=== PATIENT | female | born 1975 ===

== ENCOUNTER 2017-07-25 00:24 | Emergency (ER) | payer SELFPAY ==
[2017-07-25 00:24] VITALS: BMI 26.4
[2017-07-25 00:48] VITALS: BP 135/79; PULSE 80; RESP 16; TEMP 98; O2SAT 100
--- NOTE | 2017-07-25 01:02 | ED PDOC ---
HPI: Skin/Bite Injury Time Seen by Provider: 07/25/17 00:44 Chief Complaint (Nursing): Abnormal Skin Integrity Chief Complaint (Provider): rash History Per: Patient History/Exam Limitations: no limitations Onset/Duration Of Symptoms: Days (2 weeks) Current Symptoms Are (Timing): Still Present Quality Of Symptoms: Itching Additional History Per: Patient Additional Complaint(s): 41 y/o female presents with pruritic rash x 2 weeks. PAtient states she was seen at [facility] and given prescriptions but was unable to fill the cream because it is too expensive. Patient denies fever, known allergen. Has been applying calamine lotion with little relief. Past Medical History Reviewed: Historical Data, Nursing Documentation, Vital Signs Vital Signs: Last Vital Signs Temp 98 F 07/25/17 00:43 Pulse 80 07/25/17 00:43 Resp 16 07/25/17 00:43 BP 135/79 07/25/17 00:43 Pulse Ox 100 07/25/17 01:04 - Medical History PMH: Anemia (" when I was a baby" as per pt.), Asthma, COPD (ASTHMA) Denies: Chronic Kidney Disease - Surgical History Surgical History: - Family History Family History: States: CAD - Immunization History Hx Tetanus Toxoid Vaccination: No Hx Influenza Vaccination: No Hx Pneumococcal Vaccination: No - Home Medications Home Medications: Ambulatory Orders Medication Instructions Recorded Acyclovir [Zovirax] 800 mg PO 5XD #35 tab 07/07/17 DiphenhydrAMINE [Benadryl] 50 mg PO Q6H #24 cap 07/07/17 Permethrin 5% [Permethrin 5% Cream] 1 applic TOP ONCE #1 tube 07/07/17 - Allergies Allergies/Adverse Reactions: Allergies Allergy/AdvReac Type Severity Reaction Status Date / Time seafood Allergy Severe RASH Uncoded 05/15/17 02:40 Review of Systems ROS Statement: Except As Marked, All Systems Reviewed And Found Negative Skin: Positive for: Rash Physical Exam - Reviewed Nursing Documentation Reviewed: Yes Vital Signs Reviewed: Yes - Physical Exam Appears: Positive for: Well, Non-toxic, No Acute Distress Head Exam: Positive for: ATRAUMATIC, NORMAL INSPECTION, NORMOCEPHALIC Skin: Positive for: Rash (diffuse papular rash alternating with welts, with svetlana-type pattern appearing bilateral volar forearms. ) ENT: Positive for: Normal ENT Inspection Cardiovascular/Chest: Positive for: Regular Rate, Rhythm Respiratory: Positive for: Normal Breath Sounds Extremity: Positive for: Normal ROM Neurologic/Psych: Positive for: Alert, Oriented - ECG O2 Sat by Pulse Oximetry: 100 - Progress ED Course And Treament: Solumedrol, benadryl, pepcid Patient given permethrin cream with instructions on use. Advised to continue Benadryl. 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 Disposition - Clinical Impression Clinical Impression: Rash of body, Scabies - Patient ED Disposition Is Patient to be Admitted: No Counseled Patient/Family Regarding: Diagnosis, Need For Followup - Disposition Disposition: Routine/Home Disposition Time: 05:01 Condition: IMPROVED Additional Instructions: Follow up with Dermatology Use medication as directed. Take Benadryl as directed, as needed. Return to ED for worsening/concerning symptoms. Instructions: Scabies (ED), Acute Rash (ED)
[2017-07-25] MEDS ORDERED: DiphenhydrAMINE 50 mg/ml Inj ONE (01:26)
[2017-07-25] MEDS: Permethrin 5% CREAM TOP ONE (01:33)
[2017-07-25] MEDS: DiphenhydrAMINE 50 mg/ml Inj IV STA (01:44)
== END 2017-07-25 05:13 | disposition home or self-care (01) ==
LOC: H.ER 00:24
DX: B86 Scabies (principal)
CPT/HCPCS: 96374; 96375; 99281; J1200; J2405; J2930

== ENCOUNTER 2017-08-05 21:42 | Emergency (ER) | payer SELFPAY ==
[2017-08-05 21:43] VITALS: BMI 26.4
[2017-08-05 21:50] VITALS: BP 114/67; PULSE 93; RESP 16; TEMP 97.7; O2SAT 97
[2017-08-05] MEDS ORDERED: DiphenhydrAMINE 50 mg/ml Inj IVP STA (22:20)
[2017-08-05] MEDS ORDERED: methylPREDNISolone 125 MG in Sodium Chloride 0.9% 50 ML IVPB ONE (22:20)
--- NOTE | 2017-08-05 22:21 | ED PDOC ---
HPI: Allergic Reaction Time Seen by Provider: 08/05/17 21:55 Chief Complaint (Nursing): Allergic Reaction Chief Complaint (Provider): Rash History Per: Patient History/Exam Limitations: no limitations Onset/Duration Of Symptoms: Days (7), Worse Since (yesterday) Current Symptoms Are (Timing): Still Present Possible Cause: Unknown Associated Symptoms: Skin Rash, Dyspnea Home/EMS Treatment: Benadryl Additional Complaint(s): 41 year old female with history of Asthma presents to ED for evaluation of rash. Patient states rash has been present x 1 week. Has been evaluated by multiple providers. Last time she was in [facility] ED permethrin prescribed, used once and states made rash worse. Patient was then evaluated by [facility] 5 days ago, given benadryl and prednisone, was non-compliant with treatment, took benadryl once last night. Denies fever, chills, recent travel, sick contacts, abdominal pain, nausea, vomiting, diarrhea, constipation, urinary symptoms. Denies any new foods or possible irritants. Non-compliant with follow up appts. Patient states some sob today, had to use albuterol 2x today, no other recent use of albuterol. Able to speak in full, complete sentences. Past Medical History Reviewed: Historical Data, Nursing Documentation, Vital Signs Vital Signs: Last Vital Signs Temp 97.7 F 08/05/17 21:46 Pulse 93 H 08/05/17 21:46 Resp 16 08/05/17 21:46 BP 114/67 08/05/17 21:46 Pulse Ox 97 08/05/17 21:46 - Medical History PMH: Anemia (" when I was a baby" as per pt.), Asthma, COPD (ASTHMA) Denies: Chronic Kidney Disease - Surgical History Surgical History: - Family History Family History: States: CAD - Social History Current smoker - smoking cessation education provided: No Alcohol: Occasional Drugs: Denies - Immunization History Hx Tetanus Toxoid Vaccination: No Hx Influenza Vaccination: No Hx Pneumococcal Vaccination: No - Home Medications Home Medications: Ambulatory Orders Medication Instructions Recorded Permethrin 5% [Permethrin 5% Cream] 1 applic TOP ONCE #1 tube 07/07/17 DiphenhydrAMINE [Benadryl] 25 mg PO BID #10 cap 07/31/17 Famotidine [Pepcid] 20 mg PO BID #10 tab 07/31/17 Prednisone [Deltasone] 60 mg PO DAILY #9 tablet 07/31/17 - Allergies Allergies/Adverse Reactions: Allergies Allergy/AdvReac Type Severity Reaction Status Date / Time shrimp Allergy Severe RASH Verified 07/31/17 05:04 seafood Allergy Severe RASH Uncoded 05/15/17 02:40 Review of Systems ROS Statement: Except As Marked, All Systems Reviewed And Found Negative Constitutional: Negative for: Fever, Chills Respiratory: Negative for: Cough, Shortness of Breath Gastrointestinal: Negative for: Nausea, Vomiting, Abdominal Pain, Diarrhea Skin: Positive for: Rash Physical Exam - Reviewed Nursing Documentation Reviewed: Yes Vital Signs Reviewed: Yes - Physical Exam Appears: Positive for: Well, Non-toxic, No Acute Distress Head Exam: Positive for: ATRAUMATIC, NORMAL INSPECTION, NORMOCEPHALIC Skin: Positive for: Normal Color, Warm, Rash (widespread urticaria with multiple excoriations, mostly involving upper extremities and abdomen) Eye Exam: Positive for: Normal appearance, EOMI ENT: Positive for: Normal ENT Inspection, Pharynx Is (clear, normal airway) Neck: Positive for: Normal, Painless ROM, Supple Cardiovascular/Chest: Positive for: Regular Rate, Rhythm Respiratory: Positive for: Normal Breath Sounds. Negative for: Crackles, Rales , Rhonchi, Wheezing, Respiratory Distress Gastrointestinal/Abdominal: Positive for: Bowel Sounds (normal), Soft. Negative for: Tenderness Extremity: Positive for: Normal ROM. Negative for: Tenderness, Swelling Neurologic/Psych: Positive for: Alert, Oriented - Laboratory Results Result Diagrams: 08/05/17 22:40 08/05/17 22:40 - ECG O2 Sat by Pulse Oximetry: 97 Pulse Ox Interpretation: Normal - Progress ED Course And Treament: Time: 2215 Impression: 41 year old with PMHx of asthma with widespread rash with unknown trigger x 1 week. Poor medication and follow up adherence. Plan: -CBC -CMP -SOLUMEDROL 125MG IVP -BENADRYL 50MG IVP -FAMOTIDINE 20MG IVP -REEVAL Time: 0000 Patient re-evaluated, improved symptoms. Labs reviewed, mild leukocytosis, likely due to recent steroid use. Patient was seen by [facility] ED 5 days ago and given po steroids that she was not compliant with though took one pill this am. Patient encouraged to be compliant with medication and follow up as written. Discharge home with ED precautions Re-evaluation Time: 00:00 Condition: Re-examined, Improved Disposition - Clinical Impression Clinical Impression: Urticaria - Disposition Referrals: Victor Hugo Patricia MD [Staff Provider] - Henry Carver MD [Staff Provider] - Disposition Time: 00:23 Condition: STABLE Additional Instructions: Take medications as prescribed by [facility] ER Physician. Return to ED for new or worsening symptoms. Follow up with specialists as written. Instructions: Urticaria (ED) Forms: [facility] ([place])
[2017-08-05] MEDS ORDERED: DiphenhydrAMINE 50 mg/ml Inj ONE (22:29)
[2017-08-05 23:00] LABS: BASO # 0.1 K/uL (0.0-0.2); BASO % 0.8 % (0.0-2.0); EOS # 0.8 K/uL (0.0-0.7); EOS % 6.7 % (0.0-4.0); HEMATOCRIT 36.5 % (34.0-47.0); LYMPH # 1.6 K/uL (1.0-4.3); LYMPH % 13.2 % (20.0-40.0); MEAN CELL VOLUME 78.3 fl (81.0-99.0); MEAN CORPUSCULAR HEMOGLOBIN 24.3 pg (27.0-31.0); MEAN PLATELET VOLUME 9.2 fl (7.2-11.7); MONO # 0.7 K/uL (0.0-0.8); MONO % 5.5 % (0.0-10.0); NEUT # 8.9 K/uL (1.8-7.0); NEUT % 73.8 % (50.0-75.0)
[2017-08-05 23:11] LABS: ALB/GLOB RATIO 1.2 (1.0-2.1); ALKALINE PHOSPHATASE 54 U/L (38-126); ALT/SGPT 29 U/L (9-52); AST/SGOT 19 U/L (14-36); BILIRUBIN,TOTAL 0.1 mg/dl (0.2-1.3); BLOOD UREA NITROGEN 13 mg/dl (7-17); CALCIUM 8.3 mg/dL (8.4-10.2); CARBON DIOXIDE 23 mmol/L (22-30); CHLORIDE 105 mmol/L (98-107); GFR AFRICAN-AMERICAN > 60; GLUCOSE,RANDOM 77 mg/dL (65-105); POTASSIUM 3.9 MMOL/L (3.6-5.0); SODIUM 141 mmol/l (132-148); TOTAL PROTEIN 7.6 G/DL (6.3-8.2)
== END 2017-08-06 00:30 | disposition home or self-care (01) ==
LOC: H.ER 21:42
DX: L50.0 Allergic urticaria (principal)
CPT/HCPCS: 80053; 85025; 96374; 96375; 99282; J1200; J2930